=== PATIENT | male | born 1965 | race Caucasian/White ===

== ENCOUNTER 2021-04-20 19:55 | Emergency (ER) | payer BC, SELFPAY ==
[2021-04-20] VITALS (9 sets, daily range): BP systolic 124–145; BP diastolic 80–89; PULSE 72–88; RESP 18–21; TEMP 37.2–37.4; O2SAT 91–98; BMI 35.9
[2021-04-20 20:35] LABS: Add Manual Diff / Slide Review NO; Basophils Absolute Auto 100 /uL (0-100); Basophils Percent Auto 0.5 % (0-2); Eosinophils Absolute Auto 200 /uL (0-450); Eosinophils Percent Auto 1.6 % (2-4); Hematocrit 46.6 % (41-53); Lymphocytes Absolute Auto 2500 /uL (1100-4500); Lymphocytes Percent Auto 16.7 % (25-40); Mean Corpuscular HGB Conc 34.4 % (30-36); Mean Corpuscular Hemoglobin 30.2 PG (26-34); Monocytes Absolute Auto 1300 /uL (0-900); Monocytes Percent Auto 8.4 % (3-14); Neutrophils Absolute Auto 11000 /uL (1500-7000); Neutrophils Percent Auto 72.8 % (50-75); Platelet Count 214 X10^3/uL (150-400); Red Cell Distribution Width 14.3 % (11.6-14.8); White Blood Cell Count 15.1 X10^3/uL (4.5-11.0)
[2021-04-20 20:44] LABS: Alanine Aminotransferase 25 IU/L (<50); Albumin 4.1 g/dL (3.5-5.0); Albumin Globulin Ratio 1.5 (1.0-2.8); Alkaline Phosphatase 68 U/L (38-126); Aspartate Aminotransferase 31 IU/L (17-59); BUN Creatinine Ratio 8.5 (6-22); Bilirubin Total 0.5 mg/dL (0.2-1.3); Blood Urea Nitrogen 8 mg/dL (9-20); Calcium 8.9 mg/dL (8.4-10.2); Carbon Dioxide 24 mmol/L (22-32); Chloride 103 mmol/L (98-107); Estimated Glomerular Filt Rate > 60.0 mL/min (>60); Globulin 2.8 g/dL (1.7-4.1); Glucose 94 mg/dL (70-100); HEMOLYSIS 21 (0-50); Lipase 104 U/L (23-300); Sodium 136 mmol/L (137-145); Total Protein 6.9 g/dL (6.3-8.2)
[2021-04-20 20:45] LABS: Potassium 3.7 mmol/L (3.4-5.1)
[2021-04-20] MEDS: MORPHINE 4 MG/ML INJ IV (20:56)
[2021-04-20] MEDS: ONDANSETRON 4 MG/2 ML INJ IV (20:56)
--- NOTE | 2021-04-20 22:54 | ED_ITS ---
HPI - Abdominal Pain General Chief Complaint: Abdominal Pain Stated Complaint: STOMACH PAIN Time Seen by Provider: 04/20/21 22:54 Source: patient Mode of arrival: Wheelchair Limitations: no limitations History of Present Illness HPI narrative: Patient is a 55-year-old male history of coronary artery disease hypertension hyperlipidemia presenting today with sudden onset left lower quadrant pain. He is visiting from out of state in [place] he was feeling well yesterday. Today he has increased abdominal pain mostly left lower quadrant so bad he cannot button his pants. He vomited once. He has not had any fever or chills no change in bowel habits. Quality: cramping and stabbing Radiation: none Related Data Previous Rx's Medication Instructions Recorded ciprofloxacin HCl 500 mg tablet 500 mg PO BID #14 tab 04/21/21 (Cipro) hydrocodone 5 mg-acetaminophen 325 1 tab PO Q6H PRN #10 tab 04/21/21 mg tablet metronidazole 500 mg tablet 500 mg PO Q8H #21 tab 04/21/21 (Flagyl) Allergies Allergy/AdvReac Type Severity Reaction Status Date / Time No Known Drug Allergies Allergy Verified 04/20/21 20:04 Review of Systems Review of Systems Narrative: GENERAL: Denies chills, fatigue, malaise, fever, sweats, travel HEENT: Denies sinus pain, ear pain, sore throat, difficulty swallowing, neck pain RESPIRATORY: Denies dyspnea, cough, wheezing, hemoptysis, sputum. CARDIOVASCULAR: Denies chest pain, palpitations, orthopnea, edema GASTROINTESTINAL: See HPI : Denies dysuria, frequency, incontinence, hematuria, urinary retention, flank pain. MUSCULOSKELETAL: Denies weakness, joint pain, or bony pain SKIN: No rash, no erythema, no pruritus NEUROLOGIC: Denies weakness, dizziness, headache, numbness, change in speech, confusion PSYCHIATRIC: No concerning psychosocial issues. 12 point review of systems is negative except for those stated above and HPI Patient History Social History Smoking Status: Never smoker Smoking Status: Never smoker alcohol intake frequency: a few times a week Substance Use Type: does not use Exam Initial Vital Signs Initial Vital Signs: Vital Signs Temperature 99.3 F 04/20/21 20:04 Pulse Rate 84 04/20/21 20:04 Respiratory Rate 21 04/20/21 20:04 Blood Pressure 138/86 04/20/21 20:04 Pulse Oximetry 98 04/20/21 20:04 GENERAL: Alert 55-year-old male in no acute distress after pain medicine. HEENT: Head atraumatic,EOMI, pupils reactive, face symmetric, moist mucous membranes CARDIOVASCULAR: Regular rate and rhythm without murmurs, rubs or gallops. RESPIRATORY: Breath sounds equal bilaterally, no wheezes rales or rhonchi. ABDOMEN: Soft, left lower quadrant pain with guarding and rebound tenderness. Minimal right lower quadrant pain, no [place] sign : No CVA tenderness EXTREMITIES: Normal range of motion, no clubbing or edema. Neurovascularly intact NEUROLOGICAL: Alert and oriented x4.Normal gait and speech. SKIN: Warm, dry, no laceration, no petechiae, no rashes or lesions. Course Orders Ordered: ED Orders 04/20/21 20:20 Complete Blood Count AUTO DIFF Stat Comprehensive Metabolic Panel Stat Lipase Stat 04/20/21 23:00 CT abdomen pelvis w con Stat Discontinued Medications Hydrocodone Bitart/Acetaminophen (Hydrocodone/Acet 5/325 Prepack) 1 bottle MISC SEEINSTR ONE Stop: 04/21/21 00:29 Last Admin: 04/21/21 00:34 Dose: 1 bottle Documented by: NETTIE Ketorolac Tromethamine (Ketorolac 30 Mg/Ml Vial) 15 mg IV NOW ONE Stop: 04/21/21 00:29 Last Admin: 04/21/21 00:32 Dose: 15 mg Documented by: NETTIE Levofloxacin (Levofloxacin 250 Mg Tablet) 750 mg PO NOW ONE Stop: 04/21/21 00:29 Last Admin: 04/21/21 00:32 Dose: 750 mg Documented by: NETTIE Metronidazole (Metronidazole 500 Mg Tablet) 500 mg PO NOW ONE Stop: 04/21/21 00:29 Last Admin: 04/21/21 00:32 Dose: 500 mg Documented by: NETTIE Morphine Sulfate (Morphine 4 Mg/Ml Inj) 4 mg IV NOW ONE Stop: 04/20/21 20:52 Last Admin: 04/20/21 20:56 Dose: 4 mg Documented by: NETTIE Ondansetron HCl (Ondansetron 4 Mg/2 Ml Inj) 4 mg IV NOW ONE Stop: 04/20/21 20:42 Last Admin: 04/20/21 20:56 Dose: 4 mg Documented by: NETTIE Vital Signs Vital signs: Vital Signs - 8 hr 04/20/21 20:40 04/20/21 21:00 04/20/21 21:24 Temperature 98.9 F Pulse Rate 88 82 Respiratory Rate 18 18 Blood Pressure 142/89 H 145/86 H Pulse Oximetry 91 93 04/20/21 21:30 04/20/21 22:00 04/20/21 22:30 Temperature Pulse Rate 77 78 76 Respiratory Rate Blood Pressure 124/83 126/82 126/80 Pulse Oximetry 96 96 95 04/20/21 23:00 04/20/21 23:01 04/21/21 00:42 Temperature Pulse Rate 72 76 76 Respiratory Rate 16 Blood Pressure 127/82 127/78 Pulse Oximetry 96 95 99 MDM - Abdominal Pain Lab Data Result diagrams: 04/20/21 20:20 04/20/21 20:20 Labs: Lab Results 04/20/21 04/20/21 Range/Units 20:20 20:20 WBC 15.1 H (4.5-11.0) X10^3/uL RBC 5.30 (4.5-5.9) X10^6/uL Hgb 16.0 (13.5-17.5) g/dL Hct 46.6 (41-53) % MCV 88.0 (80-100) fL MCH 30.2 (26-34) PG MCHC 34.4 (30-36) % RDW 14.3 (11.6-14.8) % Plt Count 214 (150-400) X10^3/uL Neut % (Auto) 72.8 (50-75) % Lymph % (Auto) 16.7 L (25-40) % [place] % (Auto) 8.4 (3-14) % Eos % (Auto) 1.6 L (2-4) % Baso % (Auto) 0.5 (0-2) % Neut # (Auto) 20344 H (5735-5274) /uL Lymph # (Auto) 2500 (6765-8048) /uL [place] # (Auto) 1300 H (0-900) /uL Eos # (Auto) 200 (0-450) /uL Baso # (Auto) 100 (0-100) /uL Sodium 136 L (137-145) mmol/L Potassium 3.7 (3.4-5.1) mmol/L Chloride 103 (98-107) mmol/L Carbon Dioxide 24 (22-32) mmol/L BUN 8 L (9-20) mg/dL Creatinine 0.94 (0.66-1.25) mg/dL Estimated GFR > 60.0 (>60) mL/min BUN/Creatinine Ratio 8.5 (6-22) Glucose 94 (70-100) mg/dL Calcium 8.9 (8.4-10.2) mg/dL Total Bilirubin 0.5 (0.2-1.3) mg/dL AST 31 (17-59) IU/L ALT 25 (<50) IU/L Alkaline Phosphatase 68 (38-126) U/L Total Protein 6.9 (6.3-8.2) g/dL Albumin 4.1 (3.5-5.0) g/dL Globulin 2.8 (1.7-4.1) g/dL Albumin/Globulin Ratio 1.5 (1.0-2.8) Lipase 104 (23-300) U/L Point of care testing: Urine Dip Bedside Urine Glucose Negative Bedside Urine Bilirubin - Negative Bedside Urine Ketone - Negative Urine Specific [place] 1.025 Bedside Urine Occult Blood - Negative Bedside Urine pH 6 Bedside Urine Protein - Negative Bedside Urine Urobilinogen - Negative Bedside Urine Nitrite - Negative Bedside Urine Leukocytes - Negative Esterase Imaging Data CT scan - abdomen/pelvis: Radiologist's Impression: Concentric wall thickening at junction of descending and sigmoid colon compatible with acute diverticulitis. Negative for pneumatosis, extraluminal air or abscess. No evidence of obstruction. MDM Narrative Medical decision making narrative: Patient is having left lower quadrant tenderness. CT does confirm acute diverticulitis with leukocytosis of 15. The patient noted at this time. This can be treated with outpatient antibiotics. They plan on going home next 3 days. I recommend follow-up his primary care provider. Discharge Plan Departure Patient Disposition: Home Clinical Impression: Diverticulitis Instructions: DI for Diverticulitis Activity Restrictions/Additional Instructions: *You have been diagnosed with diverticulitis *What to do: At this time your CT scan shows that you have diverticulitis on infection of the colon which can be easily treated with antibiotics. Do not drink alcohol while taking the antibiotics and can cause vomiting. At this time recommend low-fiber diet until infection has passed. Once infection has passed recommend high-fiber diet with vegetables and fruits. *Continue to take medications as directed Flagyl 500 mg 3 times a day for 7 days Cipro 500 mg twice a day for 7 days [place] 1 tablet every 6 hours if needed for severe pain Motrin 600 mg every 6 hours if needed for [id number] pain *Follow up with your primary care provider in 2-3 days *Return to ER if you should have increasing abdominal pain, fever, bloody stools [or] any new, worsening or concerning symptoms CONTROLLED SUBSTANCE DISCHARGE (Narcotoic/benzodiazepine/Flexeril/Phenergan) 1. You have been prescribed narcotic medications, it does have acetaminophen/Tylenol/paracetamol in it, DO NOT TAKE MORE THAN 4,00mg in 24 ho urs of Tylenol. TRAMADOL DOES NOT CONTAIN TYLENOL 2. Please understand that we cannot provide further refills of narcotics, benzodiazepines or controlled substances through the ED and her pain management will need to be through your provider. 3. While on these medications you cannot drive or operate heavy machinery. 4. You cannot sign legal documents or perform any duties such as this. 5. As long as you're taking opiate pain medications he should also be taking a stool softener such as Colace, Dulcolax, MiraLAX or prune juice, to help avoid constipation. Prescriptions: New hydrocodone-acetaminophen 5-325 mg tablet 1 tab PO Q6H PRN (Reason: pain) Qty: 10 RF: 0 metronidazole [Flagyl] 500 mg tablet 500 mg PO Q8H Qty: 21 RF: 0 ciprofloxacin HCl [Cipro] 500 mg tablet 500 mg PO BID Qty: 14 RF: 0
--- NOTE | 2021-04-20 23:00 | DI.CT.S_ITS ---
PROCEDURE: CT ABDOMEN PELVIS W CON INDICATIONS: left lower quadrant pain TECHNIQUE: After the administration of intravenous contrast, axial sections acquired from the lung bases to the pubic symphysis. Coronal and sagittal reformats were performed. For radiation dose reduction, the following was used: automated exposure control, adjustment of mA and/or kV according to patient size. COMPARISON: None. FINDINGS: Image quality: Excellent. Lung bases: Mild right basilar infiltrate or atelectasis. Small hiatal hernia. Heart: Heart size is normal. There is moderate coronary artery calcification.. ABDOMEN: Liver: Unremarkable. Gallbladder: Unremarkable. Biliary ducts: Unremarkable. Pancreas: Unremarkable. Spleen: Normal in size. There is a 1.1 cm low-density nodule in spleen. Adrenal Glands: Unremarkable. Kidneys and Ureters: Unremarkable. Stomach and Bowel: Stomach, small bowel loops, and colon are normal in caliber. Scattered colonic diverticula. There is focal thickening and pericolonic stranding in distal descending or proximal sigmoid colon, consistent with acute diverticulitis. Normal appendix. Peritoneum: No abnormal intraperitoneal fluid. No free air. Ventral Wall: No hernias. Abdominal Nodes: No retroperitoneal or mesenteric adenopathy by size criteria. Vessels: Aorta and inferior vena cava are normal in size. PELVIS: Pelvic Organs: Mild enlargement of prostate. Bladder: Not fully distended. Mild bladder wall thickening may be present. Pelvic Nodes: No enlarged lymph nodes. Miscellaneous: No hernias are seen. Bones: Degenerative changes are noted IMPRESSION: 1. Acute diverticulitis of the descending or proximal sigmoid colon. No findings to suggest diverticular perforation or abscess. After adequate treatment of acute illness, a colonoscopy is suggested as colon cancer could have a similar CT appearance. 2. Enlarged prostate. 3. Moderate coronary artery calcification. 4. Mild right basilar infiltrate or atelectasis. No significant discrepancy with the weight shifter radiology preliminary report. Dictated by: Riley Mckenzie M.D. on 04/21/2021 at 7:51 Approved by: Riley Mckenzie M.D. on 04/21/2021 at 7:57
[2021-04-21] MEDS: metroNIDAZOLE 500 MG TABLET PO (00:32)
[2021-04-21] MEDS: levoFLOXacin 250 MG TABLET 750 MG PO (00:32)
[2021-04-21] MEDS: KETOROLAC 30 MG/ML VIAL 15 MG IV (00:32)
[2021-04-21] MEDS: HYDROCODONE/ACET 5/325 PREPACK 1 BOTTLE MISC (00:34)
[2021-04-21 00:42] VITALS: BP 127/78; PULSE 76; RESP 16; O2SAT 99
== END 2021-04-21 00:45 | disposition home or self-care (01) ==
PROVIDERS: Emergency Provider Emergency Medicine
DX: K57.92 Diverticulitis of intestine, part unspecified, without perforation or abscess without bleeding (principal)
CPT/HCPCS: 36415; 74177; 80053; 81003; 83690; 85025; 96374; 96375; 99284; J1885; J2270; J2405; Q9967